=== PATIENT | male | born 1940 | race Caucasian/White ===

== ENCOUNTER → 2016-04-15 | Outpatient (CLI) | payer MEDICARE, BC ==
--- NOTE | 2016-04-16 08:35 | Diagnostic Imaging Report ---
Indication: COUGH Technique: 2 views of the chest Comparison: Single view chest 10/09/2015. Findings: Lungs and pleural spaces are clear. Heart size is normal. Bones are unremarkable. Impression: No acute process
== END | disposition home or self-care (01) ==
LOC: RAD 11:29
DX: R05 Cough (principal)
CPT/HCPCS: 71020

== ENCOUNTER 2017-09-23 14:16 | Outpatient (RCR) | payer MEDICARE, BC | END 2017-09-27 | disposition home or self-care (01) | LOC: PTY 14:16 | DX: M54.2 Cervicalgia (principal) | CPT/HCPCS: 97110; 97140; 97161; G8978; G8979 ==

== ENCOUNTER 2017-09-28 09:50 | Outpatient (RCR) | payer MEDICARE, BC | END 2017-10-28 | disposition home or self-care (01) | LOC: PTY 09:50 | DX: M54.2 Cervicalgia (principal) ==

== ENCOUNTER 2017-11-02 12:45 | Outpatient (RCR) | payer MEDICARE, BC | END 2017-11-27 | disposition home or self-care (01) | LOC: PTY 12:45 | DX: M54.2 Cervicalgia (principal) | CPT/HCPCS: 97110; 97140; G8978; G8979 ==

== ENCOUNTER 2017-12-19 14:55 | Outpatient (RCR) | payer MEDICARE, BC | END 2017-12-28 | disposition home or self-care (01) | LOC: PTY 14:55 | DX: M54.2 Cervicalgia (principal) ==

== ENCOUNTER 2018-01-04 13:03 | Outpatient (RCR) | payer MEDICARE, BC | END 2018-01-27 | disposition home or self-care (01) | LOC: PTY 13:03 | DX: M54.2 Cervicalgia (principal) | CPT/HCPCS: 97110; 97140; G8979; G8980 ==